=== PATIENT | male | born 1985 | race Two or more races ===

== ENCOUNTER → 2020-10-25 | Outpatient (CLI) | payer MEDICAID, SELFPAY ==
--- NOTE | 2020-10-25 14:13 | XR_ITS ---
Examination: IR staple removal Exam date and time: October 25, 2020 at 1413 hours INDICATIONS: Port-A-Cath insertion October 13, 2020, removal brandi today TECHNIQUE: Skin prepped over the Port-A-Cath reservoir insertion site and sterile drape applied hand hygiene Successful removal brandi at the bedside Estimated blood loss 0 cc Patient in stable condition a completion procedure IMPRESSION: Successful IR staple removal at Port-A-Cath reservoir insertion site
== END | disposition home or self-care (01) ==
PROVIDERS: Referring Provider Radiology Diagnostic Radiology; Visit Provider Radiology Diagnostic Radiology
DX: I10 Essential (primary) hypertension (principal)

== ENCOUNTER 2024-05-13 12:53 | Emergency (ER) | payer MEDICAID, SELFPAY ==
[2024-05-13 12:53] VITALS: BMI 21.7
[2024-05-13 13:15] VITALS: BP 111/71; PULSE 105; RESP 18; TEMP 37.1; O2SAT 96
--- NOTE | 2024-05-13 13:29 | EDNOTE_ITS ---
ED Ear RME/HPI General Chief complaint: Ear Stated complaint: ARIEL EAR PAIN [id number] Time Seen by Provider: 05/13/24 13:03 Arrival date/time: 05/13/24 12:53 39-year-old male alcoholic presents emergency department complains of bilateral ear pain for the last few weeks intermittently patient reports his ear is irritated when he reports putting tissue paper in his right ear Limitations: no limitations Related Data Home Medications ?Medication ?Instructions ?Recorded ?Confirmed diazepam 2 mg tablet (Valium) 2 mg PO BID 06/08/2012/28 metoprolol succinate 50 mg 50 mg PO BID 06/08/2010/15 tablet,extended release 24 hr Previous Rx's ?Medication ?Instructions ?Recorded cephalexin 500 mg capsule 500 mg PO Q6H #20 caps 06/09 tramadol 50 mg tablet 50 mg PO Q6H PRN pain #20 ta bs 06/09/20 ibuprofen 600 mg tablet 600 mg PO QID PRN pain #30 t abs 08/07/23 ibuprofen 800 mg tablet 800 mg PO TID PRN pain #30 t abs 10/17/23 benzocaine 20 %-menthol 0.1 %-zinc 1 ea .Route TID PRN toothache #5.1 10/20/23 chloride 0.15 % mucosal gel grams (Orajel 3X Mouth Sores) ibuprofen 800 mg tablet 800 mg PO TID PRN pain #30 t abs 10/23/23 naproxen 500 mg tablet 500 mg PO BID PRN pain #30 t abs 10/25/23 hydrocodone 5 mg-acetaminophen 325 1 tab PO BID PRN pa in #10 tabs 12/13/23 mg tablet ibuprofen 600 mg tablet 600 mg PO Q8H PRN pain #20 t abs 01/22/24 amoxicillin 875 mg-potassium 1 tab PO BID 7 days #14 t abs 05/13/24 clavulanate 125 mg tablet ibuprofen 600 mg tablet 600 mg PO Q6H #30 tabs 05/13 ofloxacin 0.3 % ear drops 10 drop otic (ear) QDAY 10 d ays 05/13/24 #10 mL Allergies Allergy/AdvReac Type Severity Reaction Status Date / Time No Known Allergies Allergy Verified 05/13/24 12:55 Review of Systems Review of Systems Systems Reviewed: All systems reviewed, normal except as documented Constitutional Constitutional: Reports system reviewed and no additional complaints, except as documented, Denies fever(s) and Denies headache(s) Eyes Eyes: Reports system reviewed and no additional complaints, except as documented and Denies blurry vision ENT Ears, Nose, Mouth, and Throat: Reports system reviewed and no additional complaints, except as documented, Denies headache(s), Denies nasal congestion, Denies nasal discharge and Reports other (Foreign body right ear) Cardiovascular Cardiovascular: Reports system reviewed and no additional complaints, except as documented, Denies chest pain and Denies dyspnea Respiratory Respiratory: Reports system reviewed and no additional complaints, except as documented, Denies chest congestion, Denies cough and Denies dyspnea Gastrointestinal Gastrointestinal: Reports system reviewed and no additional complaints, except as documented and Denies abdominal pain Integumentary/Breasts Skin/Breast: Reports system reviewed and no additional complaints, except as documented and Denies rash Neurologic Neurologic: Reports system reviewed and no additional complaints, except as documented, Reports as per HPI and Denies headache(s) Past Medical History Past Medical History NEUROLOGIC: Negative Neurological Disorders or Seizures CARDIAC: Positive Cardiac Disorders and Hypertension (NO MEDS); Negative Congestive Heart Failure RESPIRATORY: Negative Chronic Obstructive Pulmonary Disease (COPD) GASTROINTESTINAL: Positive Gastrointestinal Disorders, Ulcer and Gastroesophageal Reflux Disease GENITOURINARY: Negative Genitourinary Disorders or Renal Disease REPRODUCTIVE: Positive Testicular Cancer MUSCULOSKELETAL: Negative Musculoskeletal Disorders ENT: Negative Glaucoma ENDOCRINE: Negative Endocrine Disorders, Diabetes Mellitus Type 1 or Diabetes Mellitus Type 2 HEMATOLOGIC: Negative Blood Disorders PSYCHO/SOCIAL: Positive Depression and Anxiety OTHER HISTORY: Positive Testicular Cancer; Negative Autoimmune Disease, Blood Transfusions, Blood Transfusion Reaction or Anesthesia Reactions Family History FAMILY HISTORY: Positive Family Cardiac Disorders (PARENTAL) and Family Surgery (SELF TESTICULAR CA); Negative Family Cancer Social History SMOKING STATUS: Never smoker ED Exam General Limitations: Present no limitations General appearance: Present alert and in no apparent distress Head Head exam: Present atraumatic Eye Eye exam: Present normal appearance, PERRL and EOMI ENT ENT exam: Present mucous membranes moist and other (Foreign bodies bilateral ears) Neck Neck exam: Present normal inspection, full ROM and trachea midline Chest Chest inspection: Present normal inspection and symmetric chest wall rise Respiratory Respiratory exam: Present normal lung sounds bilaterally Cardiovascular Cardiovascular exam: Present regular rate, normal rhythm and normal heart sounds Abdominal Exam Abdominal exam: Present soft and normal bowel sounds Extremities Exam Extremities exam: Present normal inspection and full ROM Back Exam Back exam: Present normal inspection and full ROM Neurological Exam Neurological exam: Present alert, oriented X3 and CN II-XII intact Psychiatric Psychiatric exam: Present normal affect and normal mood Skin Skin exam: Present warm, dry, intact and normal color Course Quality Measures none Orders Category Date Time Status ED Ear Irrigation X1 Care 05/13/24 13:29 Active Ibuprofen Tab [Motrin Tab] Med 05/13/24 13:29 Discontinued 800 mg PO X1 ONE Vital Signs Vital signs: Vital Signs Temperature 98.8 F 05/13/24 13:15 Pulse Rate 105 H 05/13/24 13:15 Respiratory Rate 18 05/13/24 13:15 Blood Pressure 111/71 05/13/24 13:15 Pulse Oximetry (%) 96 05/13/24 13:15 Oxygen Delivery Method Room Air 05/13/24 13:15 O2 saturation 96% room air with normal limits Procedures -ED FB Removal Ear Location: ear canal (R) (Bilateral ears) Foreign Body Suspected: organic matter TM intact pre-procedure: unable to visualize Foreign Body Removed: yes Foreign Body Removal Technique: irrigation Tympanic Membrane Intact Post Procedure: Yes Patient Tolerated Procedure: well Complications: none Ear Patient data External records reviewed:: [facility] previous records Clinical information provided by:: patient Social determinants that could affect healthcare access:: substance use Patient has the following chronic illnesses:: Substance abuse How is presenting disease/condition affected by chronic disease/condition?: exacerbated by Evaluation data The following diagnostics were reviewed and interpreted by me:: other (specify) (N/A) Lab and/or radiology exams considered but not ordered:: Consider not ordered Interpretation Summary: N/A Medications / Prescriptions Medications or Prescriptions considered but not ordered:: Given Medication administrations:: Medication Administration History Discontinued Medications Ibuprofen (Ibuprofen Tab 400 Mg Tablet) 800 mg PO X1 ONE Stop: 05/13/24 13:30 Last Admin: 05/13/24 13:39 Dose: 800 mg Documented By: OA Given Consultations Consultation(s) initiated? (list below): No Diagnosis Ear Differential Diagnosis: foreign body in ear Most likely diagnosis given after review of the tests above:: Foreign body bilateral ear canal Admission Indicated Admission indicated?: not indicated Admission Request Was there a request for admission?: No Disposition Plan Disposition Plan: Discharge Discharge Attestation Discharge Attestation: The patient and all family members were given an opportunity to ask questions and understood the discharge instructions. Discharge instructions specifically effects, indications for sooner follow up or return to the emergency department, and the expected course of current diagnosis. Patient condition: Stable Medical Decision Making MDM Narrative MDM Narrative: 39-year-old male alcoholic presents emergency department complains of bilateral ear pain for the last few weeks intermittently patient reports his ear is irritated when he reports putting tissue paper in his right ear patient has toilet paper in his right ear which was removed with instrumentation as well as irrigation Left ear has debris which was also removed with irrigation Patient be discharged home a course of antibiotics TMs intact Patient discharged home in no distress to follow-up with primary care doctor in the next 24 to 48 hours and for any worsening symptoms to return to the ER immediately Differential Diagnosis Differential Diagnosis: Alcohol abuse, methamphetamine abuse, otitis media, otitis externa Medical Records Medical records reviewed: Yes I reviewed the patient's medical records. Discharge Plan Plan Patient Disposition: HOME (Self Care) Disposition Comment: Stable Prescriptions/Referrals Prescriptions/Med Rec: New ofloxacin 0.3 % drops 10 drop BOTH EARS QDAY 10 Days Qty: 10 0RF ibuprofen 600 mg tablet 600 mg PO Q6H Qty: 30 0RF amoxicillin-pot clavulanate 875-125 mg tablet 1 tab PO BID 7 Days Qty: 14 0RF No Action metoprolol succinate 50 mg tablet extended release 24 hr 50 mg PO BID Patient Comments: TAKE 1 TABLET BY MOUTH ONCE DAILY diazepam [Valium] 2 mg Tablet 2 mg PO BID tramadol 50 mg tablet 50 mg PO Q6H PRN (Reason: pain) Qty: 20 0RF cephalexin 500 mg capsule 500 mg PO Q6H Qty: 20 0RF Orajel 3X Mouth Sores 20-0.1-0.15 % gel 1 ea .Route TID PRN (Reason: toothache) Qty: 5.1 0RF Rx Instructions: PRN ibuprofen 800 mg tablet 800 mg PO TID PRN (Reason: pain) Qty: 30 0RF naproxen 500 mg tablet 500 mg PO BID PRN (Reason: pain) Qty: 30 0RF ibuprofen 600 mg tablet 600 mg PO QID PRN (Reason: pain) Qty: 30 0RF ibuprofen 800 mg tablet 800 mg PO TID PRN (Reason: pain) Qty: 30 0RF hydrocodone-acetaminophen 5-325 mg tablet 1 tab PO BID MDD 10mg PRN (Reason: pain) Qty: 10 0RF ibuprofen 600 mg tablet 600 mg PO Q8H PRN (Reason: pain) Qty: 20 0RF Problem List Clinical Impression: Foreign body in ear Patient/Caregiver Discharge Instructions Education Materials: Anatomy of the Ear Additional Instructions: Please follow up with your primary care doctor in the next 24-48hrs for any worsening symptoms return here immediately Print Language: Pashto Stand Alone Forms: Emma Award Info., Patient Portal Info Letter PA/TRACTOR SWEEPER OPERATOR Supervising Physician PA/TRACTOR SWEEPER OPERATOR Supervising Physician: Dr Giang
[2024-05-13] MEDS: IBUPROFEN TAB 400 MG TABLET 800 MG PO (13:39)
== END 2024-05-13 14:34 | disposition home or self-care (01) ==
LOC: SERX 13:56
PROVIDERS: Emergency Provider Emergency Medicine; PCP Family Medicine
DX: T16.1XXA Foreign body in right ear, initial encounter (principal); T16.2XXA Foreign body in left ear, initial encounter; W44.F9XA Other object of natural or organic material, entering into or through a natural orifice, initial encounter
CPT/HCPCS: 69200; 99283; A9270

== ENCOUNTER 2024-06-13 16:42 | Emergency (ER) | payer MEDICAID, SELFPAY ==
[2024-06-13 16:43] VITALS: PULSE 116; RESP 18; O2SAT 98; BMI 23.0
[2024-06-13 16:49] VITALS: BP 170/97; PULSE 110; RESP 16; TEMP 36.7; O2SAT 99
--- NOTE | 2024-06-13 16:51 | PD.EDAMS ---
Altered Mental Status RME/HPI General Chief Complaint: Altered Mental Status Stated Complaint: ALTERED Time Seen by Provider: 06/13/24 16:46 Arrival date/time: 06/13/24 16:42 RME / HPI RME / HPI narrative: DR. ALARCON MAIN ED EVALUATION: 39 year old male presents to the Emergency Department [facility] with complaint of altered mental status, possible alcohol withdrawal seizure. Patient states he gets alcohol withdrawals. He tried to quit drinking cold turkey. He is shaky. 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 Other PMHx included hypertension and hearing problems since childhood. Social Hx: marijuana abuse, alcohol abuse Related Data Home Medications ?Medication ?Instructions ?Recorded ?Confirmed diazepam 2 mg tablet (Valium) 2 mg PO BID 06/08/20 10/15/20 metoprolol succinate 50 mg 50 mg PO BID 06/08/20 10/15/20 tablet,extended release 24 hr Previous Rx's ?Medication ?Instructions ?Recorded cephalexin 500 mg capsule 500 mg PO Q6H #20 caps 06/09/20 tramadol 50 mg tablet 50 mg PO Q6H PRN pain #20 tabs 06/09/20 ibuprofen 600 mg tablet 600 mg PO QID PRN pain #30 tabs 08/07/23 ibuprofen 800 mg tablet 800 mg PO TID PRN pain #30 tabs 10/17/23 benzocaine 20 %-menthol 0.1 %-zinc 1 ea .Route TID PRN toothache #5.1 10/20/23 chloride 0.15 % mucosal gel grams (Orajel 3X Mouth Sores) ibuprofen 800 mg tablet 800 mg PO TID PRN pain #30 tabs 10/23/23 naproxen 500 mg tablet 500 mg PO BID PRN pain #30 tabs 10/25/23 hydrocodone 5 mg-acetaminophen 325 1 tab PO BID PRN pain #10 tabs 12/13/23 mg tablet ibuprofen 600 mg tablet 600 mg PO Q8H PRN pain #20 tabs 01/22/24 ibuprofen 600 mg tablet 600 mg PO Q6H #30 tabs 05/13/24 lorazepam 2 mg tablet (Ativan) 2 mg PO Q8H #9 tabs 06/13/24 ondansetron 4 mg disintegrating 4 mg PO TID PRN nausea and 06/13/24 tablet vomiting 30 days #10 tabs Allergies Allergy/AdvReac Type Severity Reaction Status Date / Time No Known Allergies Allergy Verified 05/13/24 12:55 Review of Systems Review of Systems Systems Reviewed: All systems reviewed, normal except as documented Narrative Review of Systems: GEN: No fever, no chills, no weight loss EYES: No discharge, no visual changes, no pain HEENT: No ear pain, no congestion, no sore throat PULM: No shortness of breath, no cough, no congestion CV: No chest pain, no dyspnea on exertion, no palpitations GI: No nausea, no vomiting, no diarrhea, no pain, no constipation : No frequency, no urgency and no dysuria MUSC/SKEL: No joint pain, no back pain SKIN: No rash PSYCH: No hallucinations, no depression HEME/LYMPH: No easy bleeding or bruising tendencies NEURO: No weakness, no headache, + seizure (see HPI) Past Medical History Past Medical History CARDIAC: Positive Cardiac Disorders and Hypertension (NO MEDS) GASTROINTESTINAL: Positive Gastrointestinal Disorders, Ulcer and Gastroesophageal Reflux Disease REPRODUCTIVE: Positive Testicular Cancer PSYCHO/SOCIAL: Positive Depression and Anxiety OTHER HISTORY: Positive Testicular Cancer Family History FAMILY HISTORY: Positive Family Cardiac Disorders (PARENTAL) and Family Surgery (SELF TESTICULAR CA) Social History SMOKING STATUS: Never smoker SUBSTANCE USE: does not use ALCOHOL: Never ED Exam Narrative Physical exam: GENERAL APPEARANCE: alert and oriented x 4, well-developed, well-nourished, no acute distress, tremulous VITALS: All vitals were reviewed and the pulse ox is 98% on room air, which is normal according to my interpretation. HEENT: Normocephalic, atraumatic; pupils equal, round, reactive to light; EOMI; mucous membranes pink, moist; oropharynx clear NECK: Supple LUNGS: CTABL; no wheezes, no rales, no rhonchi HEART: tachycardic; normal S1, S2; no murmurs ABDOMEN: non distended; normal BS; soft, no tenderness, no guarding, no rebound; no masses, no organomegaly, no hernia BACK: no CVA tenderness EXTREMITIES: atraumatic; no edema NEUROLOGIC: tremulous, awake; alert and oriented x4; cranial nerves II-XII grossly intact; no focal sensory or motor deficits PSYCHIATRIC: appropriate mood and affect SKIN: warm, dry, normal color; no rashes Course Quality Measures none Orders Category Date Time Status Aerial Photograph Interpreter NOW Care 06/13/24 17:04 Active EKG (ED ONLY) *Do not use* NOW Care 06/13/24 17:04 Completed EKG (ED Only) Stat Exams 06/13/24 17:04 Draft Alcohol, Blood Medical Stat Lab 06/13/24 17:30 Completed B-Type Natriuretic Peptide Stat Lab 06/13/24 17:30 Completed CBC Stat Lab 06/13/24 17:30 Completed Comprehensive Metabolic Panel Stat Lab 06/13/24 17:30 Completed Drug Screen,Urine Stat Lab 06/13/24 17:31 Completed Magnesium Stat Lab 06/13/24 17:30 Completed Troponin I Stat Lab 06/13/24 17:30 Completed KCL 10% Liq UDC 15 ML Med 06/13/24 18:40 Discontinued 40 meq PO X1 ONE LORazepam [Ativan Inj] Med 06/13/24 17:44 Discontinued 1 mg IVP X1 ONE LORazepam [Ativan Inj] Med 06/13/24 18:25 Discontinued 2 mg IVP X1 ONE Ondansetron Inj [Zofran Inj] Med 06/13/24 18:25 Discontinued 4 mg IV X1 ONE Vital Signs Vital signs: Vital Signs Temperature 98.0 F 06/13/24 16:49 Pulse Rate 110 H 06/13/24 16:49 Respiratory Rate 16 06/13/24 16:49 Blood Pressure 170/97 H 06/13/24 16:49 Pulse Oximetry (%) 99 06/13/24 16:49 Oxygen Delivery Method Room Air 06/13/24 16:49 Altered Mental Status MDM Narrative MDM Narrative:: I, Eliana Cordon, marty scribing for and in the presence of Dr. Alarcon. 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 Other PMHx included hypertension and hearing problems since childhood. How is presenting disease/condition affected by chronic disease/condition?: exacerbated by Evaluation data The following diagnostics were reviewed and interpreted by me:: lab results and EKG tracing(s) Lab and/or radiology exams considered but not ordered:: none Interpretation Summary: EKG#1: EKG at 1726 hours. Interpreted by me: sinus rhythm, rate 98, no acute ischemic changes Medications / Prescriptions Medications or Prescriptions considered but not ordered:: none Medication administrations:: Medication Administration History Discontinued Medications Lorazepam (Lorazepam 2 Mg/Ml Vial) 1 mg IVP X1 ONE Stop: 06/13/24 17:45 Last Admin: 06/13/24 17:56 Dose: 1 mg Documented By: CHANO Lorazepam (Lorazepam 2 Mg/Ml Vial) 2 mg IVP X1 ONE Stop: 06/13/24 18:26 Last Admin: 06/13/24 18:42 Dose: 2 mg Documented By: CHANO Ondansetron HCl (Ondansetron Inj 2 Mg/Ml Inj 2 Ml) 4 mg IV X1 ONE; Protocol Stop: 06/13/24 18:26 Last Admin: 06/13/24 18:41 Dose: 4 mg Documented By: CHANO Potassium Chloride (Potassium Chloride 10% 20 Meq/15 Ml Udc) 40 meq PO X1 ONE Stop: 06/13/24 18:41 Last Admin: 06/13/24 18:47 Dose: 40 meq Documented By: CHANO see above if any Consultations Consultation(s) initiated? (list below): No Diagnosis Differential diagnosis altered mental status: alcoholic intoxication, altered mental status and other (alcohol withdrawals, alcohol withdrawal seizure) Most likely diagnosis given after review of the tests above:: pending diagnostic tests Admission Indicated Admission indicated?: not indicated Explain why admission is indicated or not indicated:: No final disposition plan at this time, still pending diagnostic tests. Patient signout to the base remover provider. Admission Request Was there a request for admission?: No Disposition Plan Disposition Plan: other (specify) (Patient signout to the base remover provider. ) Discharge Plan Plan Patient Disposition: HOME (Self Care) Prescriptions/Referrals Prescriptions/Med Rec: New lorazepam [Ativan] 2 mg tablet 2 mg PO Q8H Qty: 9 0RF ondansetron 4 mg tablet,disintegrating 4 mg PO TID PRN (Reason: nausea and vomiting) 30 Days Qty: 10 0RF No Action metoprolol succinate 50 mg tablet extended release 24 hr 50 mg PO BID Patient Comments: TAKE 1 TABLET BY MOUTH ONCE DAILY diazepam [Valium] 2 mg Tablet 2 mg PO BID tramadol 50 mg tablet 50 mg PO Q6H PRN (Reason: pain) Qty: 20 0RF cephalexin 500 mg capsule 500 mg PO Q6H Qty: 20 0RF Orajel 3X Mouth Sores 20-0.1-0.15 % gel 1 ea .Route TID PRN (Reason: toothache) Qty: 5.1 0RF Rx Instructions: PRN ibuprofen 800 mg tablet 800 mg PO TID PRN (Reason: pain) Qty: 30 0RF naproxen 500 mg tablet 500 mg PO BID PRN (Reason: pain) Qty: 30 0RF ibuprofen 600 mg tablet 600 mg PO QID PRN (Reason: pain) Qty: 30 0RF ibuprofen 800 mg tablet 800 mg PO TID PRN (Reason: pain) Qty: 30 0RF hydrocodone-acetaminophen 5-325 mg tablet 1 tab PO BID MDD 10mg PRN (Reason: pain) Qty: 10 0RF ibuprofen 600 mg tablet 600 mg PO Q8H PRN (Reason: pain) Qty: 20 0RF ibuprofen 600 mg tablet 600 mg PO Q6H Qty: 30 0RF Problem List Clinical Impression: Alcohol withdrawal, Alcohol abuse Patient/Caregiver Discharge Instructions Discharge Activity: activity as tolerated Education Materials: ED Alcohol Withdrawal, ED Alcohol Abuse Additional Instructions: Discharge Instructions from Dr. Greenberg printed for you: 1. After evaluation, you are withdrawing from alcohol. This can be fatal. We recommended hospitalization. But you declined. We couldn't change her mind. 2. Take Ativan 2 mg every 8 hours until seen by a doctor on 06/16/2024 to prevent alcohol withdrawal. 3. Zofran for nausea/vomiting. For good hydration, increase oral fluid and maintain clear urine. If dark or yellow, increase oral fluid. Eat regular nutritious meals. 4. Every day, take multivitamin and folic acid 1 mg and thiamine 50 mg daily. 5. See a private doctor on 06/16/2024 for recheck and further care. Ask to review all test results and official radiology reports, to make sure you receive all necessary follow-ups and monitoring. Ask for help to quit alcohol and to prevent alcohol withdrawal. 6. Seek immediate medical care with worsening, seizure, hallucinating, or with any concerns. Print Language: Upper Sorbian Stand Alone Forms: Emma Award Info., Patient Portal Info Letter
--- NOTE | 2024-06-13 17:04 | EKG_ITS ---
[facility] Test Date: 2024-06-13 Pat Name: ALPESH RAMOS Department: Room: - Gender: Male Field Staff: : 1985 Requested By: Ely Dumont Order Number: [id number] Reading MD: Ely Dumont Measurements Intervals [place] Rate: 98 P: 82 [place]: 186 QRS: 79 QRSD: 98 T: 70 QT: 353 QTc: 452 Interpretive Statements SINUS RHYTHM Compared to ECG 01/26/2021 14:13:32 Sinus tachycardia no longer present /store/[id number]
[2024-06-13 17:29] VITALS: BP 144/78; PULSE 101; RESP 16; O2SAT 98
[2024-06-13 17:37] LABS: Basophils % (Auto) 1 % (0-2.5); Eosinophils % (Auto) 0 % (0-10); Hematocrit 36.4 % (41.0-53.0); Hemoglobin 12.7 g/dL (13.5-16.0); Immature Granulocytes % (Auto) 0 % (0-0); Immature Granulocytes Auto 0.01 Thou/mm3 (0.00-0.00); Lymphocytes # (Auto) 0.6 Thou/mm3 (1.0-4.8); Lymphocytes % (Auto) 13 % (10-50); Mean Corpuscular HGB Conc 34.9 g/dl (31.0-37.0); Mean Corpuscular Hemoglobin 32.6 pg (25.0-35.0); Mean Corpuscular Volume 93 fL (80-100); Monocytes # (Auto) 0.6 Thou/mm3 (0.0-0.8); Monocytes % (Auto) 13 % (0-12); Neutrophils # (Auto) 3.6 Thou/mm3 (1.8-7.7); Neutrophils % (Auto) 74 % (37-80); Nucleated Red Blood Cell % 0 /100 WBC (0); Platelet Count 180 Thou/mm3 (140-440); RDW Standard Deviation 43.8 fL (35.1-43.9); White Blood Count 4.9 Thou/mm3 (3.8-10.6)
[2024-06-13 17:47] LABS: Amphetamine/Methamp Scrn,U Negative (Negative); Barbiturate Screen,Urine Negative (Negative); Benzodiazepines Screen,Urine Negative (Negative); Benzoylecgonine Screen, Ur Negative (Negative); Fentanyl Screen,Urine Negative (Negative); Opiate Screen,Urine Negative (Negative); THC Screen,Urine Positive (Negative)
[2024-06-13 17:53] LABS: Alanine Aminotransferase 21 U/L (10-49); Albumin, Serum 4.7 gm/dL (3.5-5.0); Albumin/Globulin Ratio 1.5 (1.2-2.2); Alcohol, Blood Medical < 10.0 mg/dL (0-10.0); Alkaline Phosphatase 90 U/L (46-116); Anion Gap 13 (7-16); Aspartate Amino Transferase 63 U/L (0-34); BUN/Creatinine Ratio 6 Ratio (12-20); Bilirubin,Total 0.9 mg/dL (0.3-1.2); Blood Urea Nitrogen < 5 mg/dL (9-23); Calcium 10.3 mg/dL (8.3-10.6); Calcium (Corrected) 10.3 mg/dL (8.5-10.1); Carbon Dioxide 22.8 mMol/L (20.0-31.0); Chloride 101 mMol/L (98-107); Creatinine (Component) 0.8 mg/dL (0.6-1.3); Estimated Creatinine Clearance 135.2 mL/min (>60); Globulin 3.1 gm/dL (2.3-3.5); Glucose 171 mg/dL (74-106); Magnesium 1.7 mg/dL (1.6-2.6); Osmolality,Calculated 275 (275-295); Potassium 3.2 mMol/L (3.4-5.1); Sodium 137 mMol/L (136-145); Total Protein 7.8 gm/dL (5.7-8.2); Troponin I < 0.002 ng/mL (0.0-0.045); eGFR > 60 See Note
[2024-06-13] MEDS: LORazepam 2 MG/ML VIAL 1 MG IVP (17:56)
[2024-06-13 18:02] VITALS: BP 157/98; PULSE 85; RESP 21; TEMP 36.6; O2SAT 98
--- NOTE | 2024-06-13 18:12 | PD.EDADDENDU ---
Emergency Room Addendum <Mariely Hernandez - Last Filed: 06/13/24 18:47> Addendum Narrative: I took over the care from Dr. Alarcon at 6 PM on 06/13/2024, see her notes for complete H&P and ED course. I reviewed all diagnostic test results. At this point, diagnoses include alcohol abuse and alcohol withdrawal. Discharge Instructions from Dr. Greenberg printed for you: 1. After evaluation, you are withdrawing from alcohol. This can be fatal. We recommended hospitalization. But you declined. We couldn't change her mind. 2. Take Ativan 2 mg every 8 hours until seen by a doctor on 06/16/2024 to prevent alcohol withdrawal. 3. Zofran for nausea/vomiting. For good hydration, increase oral fluid and maintain clear urine. If dark or yellow, increase oral fluid. Eat regular nutritious meals. 4. Every day, take multivitamin and folic acid 1 mg and thiamine 50 mg daily. 5. See a private doctor on 06/16/2024 for recheck and further care. Ask to review all test results and official radiology reports, to make sure you receive all necessary follow-ups and monitoring. Ask for help to quit alcohol and to prevent alcohol withdrawal. 6. Seek immediate medical care with worsening, seizure, hallucinating, or with any concerns. <Mega Greenberg MD - Last Filed: 06/13/24 18:49> Addendum Narrative: I took over the care from Dr. Alarcon at 6 PM on 06/13/2024, see her notes for complete H&P and ED course. I reviewed all diagnostic test results. At this point, diagnoses include alcohol abuse and alcohol withdrawal. Treatment here included oral KCl, IV Ativan, and Zofran. Significant improvement noted. Recommended hospitalization for alcohol withdrawal and to prevent seizure and even mortality. Patient declined. He signed out AMA. Despite discussing risks, even fatality, we couldn't change his mind. Based on my best medical judgment, made decision no further evaluation or treatment indicated at this time.? Patient understands and agrees to the discharge instructions customized and printed, see below. Discharge Instructions from Dr. Greenberg printed for you: 1. After evaluation, you are withdrawing from alcohol. This can be fatal. We recommended hospitalization. But you declined. We couldn't change her mind. 2. Take Ativan 2 mg every 8 hours until seen by a doctor on 06/16/2024 to prevent alcohol withdrawal. 3. Zofran for nausea/vomiting. For good hydration, increase oral fluid and maintain clear urine. If dark or yellow, increase oral fluid. Eat regular nutritious meals. 4. Every day, take multivitamin and folic acid 1 mg and thiamine 50 mg daily. 5. See a private doctor on 06/16/2024 for recheck and further care. Ask to review all test results and official radiology reports, to make sure you receive all necessary follow-ups and monitoring. Ask for help to quit alcohol and to prevent alcohol withdrawal. 6. Seek immediate medical care with worsening, seizure, hallucinating, or with any concerns.
[2024-06-13 18:13] LABS: B-Type Natriuretic Peptide < 20 pg/mL (0-100)
[2024-06-13] MEDS: ONDANSETRON INJ 2 MG/ML INJ 2 ML 4 MG IV (18:41)
[2024-06-13] MEDS: LORazepam 2 MG/ML VIAL IVP (18:42)
[2024-06-13] MEDS: POTASSIUM CHLORIDE 10% 20 MEQ/15 ML UDC 40 MEQ PO (18:47)
== END 2024-06-13 19:35 | disposition home or self-care (01) ==
PROVIDERS: Emergency Medicine; Emergency Provider Emergency Medicine
DX: F10.139 Alcohol abuse with withdrawal, unspecified (principal); Y90.0 Blood alcohol level of less than 20 mg/100 ml; I10 Essential (primary) hypertension
CPT/HCPCS: 36415; 80053; 80307; 80320; 83735; 83880; 84484; 85025; 93005; 99284; J2060; J2405; A9270; G0480

== ENCOUNTER 2024-07-15 12:29 | Emergency (ER) | payer MEDICAID, SELFPAY ==
[2024-07-15 12:32] VITALS: BP 130/75; PULSE 108; RESP 18; TEMP 36.7; O2SAT 94; BMI 26.1
--- NOTE | 2024-07-15 12:50 | EDNOTE_ITS ---
<Statement entered by Ely Alarcon MD - 07/15/24 15:03> As co-signing physician, I was present and available for consult prn. I concur with the plan and care as documented by the midlevel provider. ED General RME/HPI General Chief complaint: Fall Stated complaint: FALL Time Seen by Provider: 07/15/24 12:49 Arrival date/time: 07/15/24 12:29 CC: Headache HPI patient presents the ER via EMS who reports stable vital signs at the patient fell a bus slight incline, admits to striking his head, denies LOC however the patient is highly intoxicated, drinks bottle and a half of vodka every day. EMS has not seen this patient before however PD state they are quite familiar with this person. Patient informs that he was given an option of going to correction or coming to the emergency room he is awake alert oriented said he has pain motioning to his right side of his head. Awake alert oriented x [address] with slurred speech. No other complaints of pain. Related Data Home Medications ?Medication ?Instructions ?Recorded ?Confirmed diazepam 2 mg tablet (Valium) 2 mg PO BID 06/08/2012/28 metoprolol succinate 50 mg 50 mg PO BID 06/08/2010/15 tablet,extended release 24 hr Previous Rx's ?Medication ?Instructions ?Recorded cephalexin 500 mg capsule 500 mg PO Q6H #20 caps 06/09 tramadol 50 mg tablet 50 mg PO Q6H PRN pain #20 ta bs 06/09/20 ibuprofen 600 mg tablet 600 mg PO QID PRN pain #30 t abs 08/07/23 ibuprofen 800 mg tablet 800 mg PO TID PRN pain #30 t abs 10/17/23 benzocaine 20 %-menthol 0.1 %-zinc 1 ea .Route TID PRN toothache #5.1 10/20/23 chloride 0.15 % mucosal gel grams (Orajel 3X Mouth Sores) ibuprofen 800 mg tablet 800 mg PO TID PRN pain #30 t abs 10/23/23 naproxen 500 mg tablet 500 mg PO BID PRN pain #30 t abs 10/25/23 hydrocodone 5 mg-acetaminophen 325 1 tab PO BID PRN pa in #10 tabs 12/13/23 mg tablet ibuprofen 600 mg tablet 600 mg PO Q8H PRN pain #20 t abs 01/22/24 ibuprofen 600 mg tablet 600 mg PO Q6H #30 tabs 05/13 lorazepam 2 mg tablet (Ativan) 2 mg PO Q8H #9 tabs 10/31 Allergies Allergy/AdvReac Type Severity Reaction Status Date / Time No Known Allergies Allergy Verified 05/13/24 12:55 Review of Systems Review of Systems Narrative Review of Systems: GEN: No fever, no chills, no weight loss EYES: No discharge, no visual changes, no pain HEENT: No ear pain, no congestion, no sore throat PULM: No shortness of breath, no cough, no congestion CV: No chest pain, no dyspnea on exertion, no palpitations GI: No nausea, no vomiting, no diarrhea, no pain, no constipation : No frequency, no urgency, no dysuria MUSC/SKEL: No joint pain, no back pain SKIN: No rash PSYCH: No hallucinations, no depression HEME/LYMPH: No easy bleeding or bruising tendencies NEURO: No weakness, + headache Past Medical History Past Medical History NEUROLOGIC: Negative Neurological Disorders or Seizures CARDIAC: Positive Cardiac Disorders and Hypertension (NO MEDS); Negative Congestive Heart Failure RESPIRATORY: Negative Chronic Obstructive Pulmonary Disease (COPD) GASTROINTESTINAL: Positive Gastrointestinal Disorders, Ulcer and Gastroesophageal Reflux Disease GENITOURINARY: Negative Genitourinary Disorders or Renal Disease REPRODUCTIVE: Positive Testicular Cancer MUSCULOSKELETAL: Negative Musculoskeletal Disorders ENT: Negative Glaucoma ENDOCRINE: Negative Endocrine Disorders, Diabetes Mellitus Type 1 or Diabetes Mellitus Type 2 HEMATOLOGIC: Negative Blood Disorders PSYCHO/SOCIAL: Positive Depression and Anxiety OTHER HISTORY: Positive Testicular Cancer; Negative Autoimmune Disease, Blood Transfusions, Blood Transfusion Reaction or Anesthesia Reactions Family History FAMILY HISTORY: Positive Family Cardiac Disorders (PARENTAL) and Family Surgery (SELF TESTICULAR CA); Negative Family Cancer Social History SMOKING STATUS: Never smoker SUBSTANCE USE: does not use ED Exam Narrative Physical exam: [General: Appears not in any acute distress Head normocephalic no step-off hematoma induration ulceration depression. HEENT: Eyes pupils are PERRLA EOMs are intact no entrapment mouth pink dry membranes uvula is midline swallow symmetrical phonation is normal all the subsystems of ATTR within acceptable limits Neck is supple nontender no spinous process tenderness with palpation full range of motion flexion extension or rotation. Chest equal chest rise nontender to palpation Respiratory: Clear to auscultation no wheezes crackles or rubs CV: Rate rhythm is regular no murmurs rubs or clicks Abdomen is soft nontender no masses positive bowel sounds all 4 quadrants Back: No CVA tenderness no spinous process tenderness from cervical spine thoracic and lumbar spine Skin: Intact no petechiae rash induration ulceration or crepitus Extremities: Moving all extremity against resistance cap refill less than 2 seconds neurosensory intact Neuro: Awake alert oriented x2, person and place, Glascow coma 15 no focal deficits] Course Quality Measures none Orders Category Date Time Status CT head/brain wo con Stat Exams 07/15/24 12:49 Ordered Acetaminophen Tab [Tylenol Tab] Med 07/15/24 14:26 Discontinued 650 mg PO X1 ONE Vital Signs Vital signs: Vital Signs Temperature 98.1 F 07/15/24 12:32 Pulse Rate 108 H 07/15/24 12:32 Respiratory Rate 18 07/15/24 12:32 Blood Pressure 130/75 07/15/24 12:32 Pulse Oximetry (%) 94 L 07/15/24 12:32 Oxygen Delivery Method Room Air 07/15/24 12:32 MDM Patient data External records reviewed:: [facility] previous records and EMS form Clinical information provided by:: patient and EMS Social determinants that could affect healthcare access:: alcohol use Patient has the following chronic illnesses:: None How is presenting disease/condition affected by chronic disease/condition?: uneffected by Evaluation data The following diagnostics were reviewed and interpreted by me:: radiology exam(s) Lab and/or radiology exams considered but not ordered:: None Interpretation Summary: At 1430 was informed by nurses the patient had eloped. The patient is becoming a semibelligerent demanding pain medications was awake alert oriented with no focal deficits at that time. Patient was awaiting CT of the head. Patient ambulated without complications off the bed and out the door none Medications Medications considered but not ordered:: None Medication administrations:: Medication Administration History Discontinued Medications Acetaminophen (Acetaminophen 325 Mg Tablet) 650 mg PO X1 ONE Stop: 07/15/24 14:27 Last Admin: 07/15/24 14:34 Dose: 650 mg Documented By: DIONNE None Consultations Consultation(s) initiated? (list below): No Diagnosis Differential Diagnosis ED Complaint MDM: Closed head injury neck fracture alcohol intoxication Most likely diagnosis given after review of the tests above:: Elopement Admission Indicated Admission indicated?: not indicated Explain why admission is indicated or not indicated:: Eloped Admission Request Was there a request for admission?: No Disposition Plan Disposition Plan: other (specify) (Eloped) Medical Decision Making Differential Diagnosis Differential Diagnosis: Closed head injury neck fracture alcohol intoxication Discharge Plan Plan Patient Disposition: Elopement Patient condition on transfer: Stable Prescriptions/Referrals Prescriptions/Med Rec: No Action metoprolol succinate 50 mg tablet extended release 24 hr 50 mg PO BID Patient Comments: TAKE 1 TABLET BY MOUTH ONCE DAILY diazepam [Valium] 2 mg Tablet 2 mg PO BID tramadol 50 mg tablet 50 mg PO Q6H PRN (Reason: pain) Qty: 20 0RF cephalexin 500 mg capsule 500 mg PO Q6H Qty: 20 0RF Orajel 3X Mouth Sores 20-0.1-0.15 % gel 1 ea .Route TID PRN (Reason: toothache) Qty: 5.1 0RF Rx Instructions: PRN ibuprofen 800 mg tablet 800 mg PO TID PRN (Reason: pain) Qty: 30 0RF naproxen 500 mg tablet 500 mg PO BID PRN (Reason: pain) Qty: 30 0RF ibuprofen 600 mg tablet 600 mg PO QID PRN (Reason: pain) Qty: 30 0RF ibuprofen 800 mg tablet 800 mg PO TID PRN (Reason: pain) Qty: 30 0RF hydrocodone-acetaminophen 5-325 mg tablet 1 tab PO BID MDD 10mg PRN (Reason: pain) Qty: 10 0RF ibuprofen 600 mg tablet 600 mg PO Q8H PRN (Reason: pain) Qty: 20 0RF ibuprofen 600 mg tablet 600 mg PO Q6H Qty: 30 0RF lorazepam [Ativan] 2 mg tablet 2 mg PO Q8H Qty: 9 0RF Referrals: No Primary/Family,Physician [Primary Care Provider] - In 1 week Problem List Clinical Impression: Fall Patient/Caregiver Discharge Instructions Print Language: Turkish PA/[employer] Supervising Physician PA/[employer] Supervising Physician: Francine Donaldson ENP
[2024-07-15 12:56] VITALS: PULSE 113
--- NOTE | 2024-07-15 13:30 | PC.NURSE ---
PATIENT GIVEN SANDWICH, CHIPS, AND WATER REQUESTED. AWAITING FOR CT TO BE DONE AT THIS TIME. GCS OF 15, NO DISTRESS NOTED AT THIS TIME
[2024-07-15] MEDS: ACETAMINOPHEN 325 MG TABLET 650 MG PO (14:34)
--- NOTE | 2024-07-15 14:52 | PC.NURSE ---
PT CUSSING ON THE PHONE. SEEN GETTING UP AND WALKING OUT OF ED. I ATTEMPTED TO SPEAK WITH PT BUT HE CONTINUED TO WALK OUT OF ED WITH HIS EARPHONES PURPOSELY IGNORING ME. PROVIDER AWARE
== END 2024-07-15 14:58 | disposition left against medical advice (07) ==
PROVIDERS: Emergency Provider Emergency Medicine
DX: R51.9 Headache, unspecified (principal); W17.89XA Other fall from one level to another, initial encounter; Y92.811 Bus as the place of occurrence of the external cause
CPT/HCPCS: 99281; A9270

== ENCOUNTER 2024-08-12 08:35 | Emergency (ER) | payer MEDICAID, SELFPAY ==
[2024-08-12] VITALS (7 sets, daily range): BP systolic 135–159; BP diastolic 80–104; PULSE 76–114; RESP 18; TEMP 36.7–37; O2SAT 94–98; BMI 30.5
--- NOTE | 2024-08-12 10:52 | XR_ITS ---
Examination: CT brain head without contrast. 2-D sagittal coronal reconstructions Date and time of exam:August 12, 2024 1117 hours INDICATIONS: Patient fell today with injury to the head followed by head pain altered mental status CTDI: vol (mGy):50 DLP: (mGycm):1032 Technique: Multiple CT axial sections of the brain have been obtained, 5 mm slice thickness. Contrast has not been administered. 2-D sagittal, coronal reconstructions have been obtained Low dose protocols were performed. One or more of the following dose reduction techniques were used; automated exposure control, adjustment of the mA and/or KV according to patient size, use of iterative reconstruction technique. Findings: No significant ventricular enlargement. Intra-axial or extra-axial hemorrhage density is not seen. No mass effect or midline shift Basal cisterns are not remarkable. Fourth ventricle is midline. Cranial vault intact. Impression: Negative for acute hemorrhage, mass effect or midline shift
--- NOTE | 2024-08-12 10:55 | XR_ITS ---
Examination: CT cervical spine without contrast 2-D sagittal reconstructions 2-D coronal reconstructions 3-D reconstructions. Exam date and time:August 12, 2024 1117 hours INDICATIONS: Patient fell today with injury to the neck, neck pain CTDI:vol (mGy) 9 DLP: (mGycm) 222 Technique: Multiple 2 mm axial sections of the cervical spine have been obtained. The coronal and sagittal reconstructions have been obtained. 3-D reconstructions have been obtained. Low dose protocols were performed. One or more of the following dose reduction techniques were used; automated exposure control, adjustment of the mA and/or KV according to patient size, use of iterative reconstruction technique. Findings: Axial sections demonstrate intact base of the skull. C1 exhibit satisfactory relationship to the odontoid. No acute cervical vertebral body fracture seen. Alignment posterior spinous processes satisfactory. Impression: No acute cervical fracture.
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
[2024-08-12 11:13] LABS: Lactate (Lactic Acid) 3.3 mMol/L (0.4-2.0)
[2024-08-12 11:18] LABS: Basophils # (Auto) 0.1 Thou/mm3 (0.0-0.2); Basophils % (Auto) 2 % (0-2.5); Eosinophils % (Auto) 0 % (0-10); Hematocrit 35.3 % (41.0-53.0); Immature Granulocytes % (Auto) 0 % (0-0); Immature Granulocytes Auto 0.01 Thou/mm3 (0.00-0.00); Lymphocytes # (Auto) 1.5 Thou/mm3 (1.0-4.8); Lymphocytes % (Auto) 30 % (10-50); Mean Corpuscular HGB Conc 36.8 g/dl (31.0-37.0); Mean Corpuscular Hemoglobin 32.1 pg (25.0-35.0); Mean Corpuscular Volume 87 fL (80-100); Monocytes # (Auto) 0.8 Thou/mm3 (0.0-0.8); Monocytes % (Auto) 16 % (0-12); Neutrophils # (Auto) 2.5 Thou/mm3 (1.8-7.7); Neutrophils % (Auto) 51 % (37-80); Nucleated Red Blood Cell % 0 /100 WBC (0); Platelet Count 93 Thou/mm3 (140-440); RDW Standard Deviation 43.7 fL (35.1-43.9); Red Blood Count 4.05 Miln/mm3 (4.50-5.90); White Blood Count 4.9 Thou/mm3 (3.8-10.6)
[2024-08-12 11:42] LABS: Alanine Aminotransferase 74 U/L (10-49); Albumin, Serum 4.5 gm/dL (3.5-5.0); Albumin/Globulin Ratio 1.6 (1.2-2.2); Alkaline Phosphatase 142 U/L (46-116); Anion Gap 11 (7-16); Aspartate Amino Transferase 188 U/L (0-34); BUN/Creatinine Ratio 18 Ratio (12-20); Bilirubin,Total 0.7 mg/dL (0.3-1.2); Blood Urea Nitrogen 11 mg/dL (9-23); Calcium 8.9 mg/dL (8.3-10.6); Calcium (Corrected) 8.9 mg/dL (8.5-10.1); Carbon Dioxide 26.6 mMol/L (20.0-31.0); Chloride 99 mMol/L (98-107); Creatinine (Component) 0.6 mg/dL (0.6-1.3); Estimated Creatinine Clearance 181.2 mL/min (>60); Globulin 2.8 gm/dL (2.3-3.5); Glucose 113 mg/dL (74-106); Lipase 133 U/L (12-53); Osmolality,Calculated 274 (275-295); Potassium 3.3 mMol/L (3.4-5.1); Sodium 137 mMol/L (136-145); Total Protein 7.3 gm/dL (5.7-8.2); Troponin I < 0.020 ng/mL (0.0-0.045); eGFR > 60 See Note
[2024-08-12 11:43] LABS: Prothrombin Time 11.4 Seconds (9.0-12.2)
[2024-08-12] MEDS: SODIUM CHLORIDE 0.9% 500 ML 500 ML 999 ML IV (12:28)
[2024-08-12] MEDS: THIAMINE 100 MG TABLET PO (12:28)
[2024-08-12] MEDS: LORazepam 2 MG/ML VIAL IV (12:31)
[2024-08-12 14:12] LABS: Reflex Lactate? Y
[2024-08-12 14:57] LABS: Lactic Acid, 3 HR 1.7 mMol/L (0.4-2.0)
[2024-08-12 15:48] LABS: Collection Type, Urine Pedi-Bag; Squamous Epithelial Cell,Urine 0 /hpf (0-5)
[2024-08-12 16:03] LABS: Bilirubin,Urine Negative (Negative); Blood,Urine 1+ (Negative); Clarity,Urine Clear (Clear/Hazy); Color,Urine Yellow (Lt Yel-Yel); Glucose, Urine Negative (Negative); Hyaline Casts,Urine < 1 /hpf (0-1); Ketones,Urine Negative (Negative); Leukocyte Esterase,Urine Negative (Negative); Nitrite,Urine Negative (Negative); PH,Urine 6.5 (5.0-7.0); Protein,Urine 3+ (Neg - Trace); RBC,Urine 3 /hpf (0-3); Specific Gravity,Urine 1.023 (1.001-1.035); WBC,Urine 1 /hpf (0-5)
[2024-08-12 16:11] LABS: Amphetamine/Methamp Scrn,U Negative (Negative); Barbiturate Screen,Urine Negative (Negative); Benzodiazepines Screen,Urine Positive (Negative); Benzoylecgonine Screen, Ur Negative (Negative); Fentanyl Screen,Urine Negative (Negative); Opiate Screen,Urine Negative (Negative); THC Screen,Urine Positive (Negative)
== END 2024-08-12 18:22 | disposition home or self-care (01) ==
PROVIDERS: Emergency Provider Emergency Medicine
DX: F10.131 Alcohol abuse with withdrawal delirium (principal); F10.129 Alcohol abuse with intoxication, unspecified
CPT/HCPCS: 36415; 70450; 72125; 80053; 80307; 80320; 81001; 83605; 83690; 84484; 85025; 85610; 99284; 99285; J2060; J7040; A9270; G0480

== ENCOUNTER 2024-08-25 19:04 | Emergency (ER) | payer MEDICAID, SELFPAY ==
[2024-08-25 19:07] VITALS: PULSE 102; RESP 18; O2SAT 98
[2024-08-25 19:59] VITALS: BP 115/85; PULSE 103; RESP 18; TEMP 37; O2SAT 97
--- NOTE | 2024-08-25 20:09 | XR_ITS ---
Examination: CT brain head without contrast. 2-D sagittal coronal reconstructions Date and time of exam:August 25, 2024 and 41 hours Comparison August 12, 2024 CTDI: vol (mGy):51 DLP: (mGycm):1075 Technique: Multiple CT axial sections of the brain have been obtained, 5 mm slice thickness. Contrast has not been administered. 2-D sagittal, coronal reconstructions have been obtained Low dose protocols were performed. One or more of the following dose reduction techniques were used; automated exposure control, adjustment of the mA and/or KV according to patient size, use of iterative reconstruction technique. Findings: No significant ventricular enlargement. Intra-axial or extra-axial hemorrhage density is not seen. No mass effect or midline shift Basal cisterns are not remarkable. Fourth ventricle is midline. Cranial vault intact. Impression: Negative for acute hemorrhage, mass effect or midline shift Chronic right mastoiditis Right otitis externa, right otitis media
[2024-08-25 20:56] LABS: Basophils # (Auto) 0.1 Thou/mm3 (0.0-0.2); Basophils % (Auto) 2 % (0-2.5); Eosinophils # (Auto) 0.1 Thou/mm3 (0.0-0.5); Eosinophils % (Auto) 2 % (0-10); Hematocrit 35.7 % (41.0-53.0); Hemoglobin 12.9 g/dL (13.5-16.0); Immature Granulocytes % (Auto) 0 % (0-0); Immature Granulocytes Auto 0.02 Thou/mm3 (0.00-0.00); Lymphocytes # (Auto) 2.5 Thou/mm3 (1.0-4.8); Lymphocytes % (Auto) 55 % (10-50); Mean Corpuscular HGB Conc 36.1 g/dl (31.0-37.0); Mean Corpuscular Hemoglobin 32.6 pg (25.0-35.0); Mean Corpuscular Volume 90 fL (80-100); Monocytes # (Auto) 0.5 Thou/mm3 (0.0-0.8); Monocytes % (Auto) 10 % (0-12); Neutrophils # (Auto) 1.4 Thou/mm3 (1.8-7.7); Neutrophils % (Auto) 31 % (37-80); Nucleated Red Blood Cell % 0 /100 WBC (0); Platelet Count 141 Thou/mm3 (140-440); RDW Standard Deviation 49.1 fL (35.1-43.9); Red Blood Count 3.96 Miln/mm3 (4.50-5.90); White Blood Count 4.5 Thou/mm3 (3.8-10.6)
[2024-08-25 21:26] LABS: Alcohol, Blood Medical 471.6 mg/dL (0-10.0)
--- NOTE | 2024-08-25 23:14 | EDNOTE_ITS ---
ED Fall Injury RME/HPI General Chief Complaint: Fall Stated Complaint: FLANK PAIN Time Seen by Provider: 08/25/24 19:32 Source: patient Arrival date/time: 08/25/24 19:04 39-year-old male presents to ED with complaint of a ground-level fall. Patient tells me he was out x 5 minutes. Mode of arrival: ambulatory Limitations: no limitations RME / HPI complaint: fall Onset (ago): minute(s) (5) Fall from: standing Place fall occurred: street Severity: moderate Severity scale (1-10): 5 Related Data Home Medications ?Medication ?Instructions ?Recorded ?Confirmed diazepam 2 mg tablet (Valium) 2 mg PO BID 06/08/2012/28 metoprolol succinate 50 mg 50 mg PO BID 06/08/2010/15 tablet,extended release 24 hr Previous Rx's ?Medication ?Instructions ?Recorded cephalexin 500 mg capsule 500 mg PO Q6H #20 caps 06/09 tramadol 50 mg tablet 50 mg PO Q6H PRN pain #20 ta bs 06/09/20 ibuprofen 600 mg tablet 600 mg PO QID PRN pain #30 t abs 08/07/23 ibuprofen 800 mg tablet 800 mg PO TID PRN pain #30 t abs 10/17/23 benzocaine 20 %-menthol 0.1 %-zinc 1 ea .Route TID PRN toothache #5.1 10/20/23 chloride 0.15 % mucosal gel grams (Orajel 3X Mouth Sores) ibuprofen 800 mg tablet 800 mg PO TID PRN pain #30 t abs 10/23/23 naproxen 500 mg tablet 500 mg PO BID PRN pain #30 t abs 10/25/23 hydrocodone 5 mg-acetaminophen 325 1 tab PO BID PRN pa in #10 tabs 12/13/23 mg tablet ibuprofen 600 mg tablet 600 mg PO Q8H PRN pain #20 t abs 01/22/24 ibuprofen 600 mg tablet 600 mg PO Q6H #30 tabs 05/13 lorazepam 2 mg tablet (Ativan) 2 mg PO Q8H #9 tabs 10/31 amoxicillin 500 mg tablet 500 mg PO TID #30 tabs 08/26 [id number]-[id number] 3.3 4 drp otic (ear) TID # 10 mL 05/20/25 mg-3 mg-10 mg-0.5 mg/mL ear drops,susp (Cortisporin-TC) Allergies Allergy/AdvReac Type Severity Reaction Status Date / Time No Known Allergies Allergy Verified 05/13/24 12:55 Review of Systems Constitutional Constitutional: Reports system reviewed and no additional complaints, except as documented Eyes Eyes: Reports system reviewed and no additional complaints, except as documented, Denies dry eyes, Denies exophthalmos and Reports floaters Cardiovascular Cardiovascular: Denies chest pain with activity and Denies claudication ED Exam General Limitations: Present no limitations General appearance: Present alert and in no apparent distress Head Head exam: Present atraumatic Eye Eye exam: Present normal appearance, PERRL and EOMI ENT ENT exam: Present normal exam, normal oropharynx and mucous membranes moist Neck Neck exam: Present normal inspection, full ROM and trachea midline Chest Chest inspection: Present normal inspection and symmetric chest wall rise Respiratory Respiratory exam: Present normal lung sounds bilaterally Extremities Exam Extremities exam: Present normal inspection and full ROM (All extremities are full range of motion and symmetrical.) Back Exam Back exam: Present normal inspection and full ROM Neurological Exam Neurological exam: Present alert and oriented X3 Psychiatric Psychiatric exam: Present normal affect and normal mood Skin Skin exam: Present warm, dry, intact and normal color Course Course Course Narrative: Patient will have a CT of his head and blood alcohol level will also be drawn as well as CBC and CMP Quality Measures none Orders Category Date Time Status CT head/brain wo con Stat Exams 08/25/24 20:09 Completed Alcohol, Blood Medical Stat Lab 08/25/24 20:35 Completed CBC Stat Lab 08/25/24 20:35 Completed Done Vital Signs Vital signs: Vital Signs Temperature 98.6 F 08/25/24 19:59 Pulse Rate 103 H 08/25/24 19:59 Respiratory Rate 18 08/25/24 19:59 Blood Pressure 115/85 H 08/25/24 19:59 Pulse Oximetry (%) 97 08/25/24 19:59 Oxygen Delivery Method Room Air 08/25/24 19:59 Pulse ox 97% room air Fall MDM Narrative MDM Narrative:: Patient had a CT that demonstrated sinusitis and right otitis media as well as right otitis externa. There is no midline shift and there is no apparent subdural hematoma. Patient will be made aware of the results. He will also go home with a prescription for amoxicillin and Ciprodex. Patient data External records reviewed:: Other (specify) Clinical information provided by:: none Social determinants that could affect healthcare access:: none Patient has the following chronic illnesses:: Alcoholism How is presenting disease/condition affected by chronic disease/condition?: no chronic disease Evaluation data The following diagnostics were reviewed and interpreted by me:: other (specify) Lab and/or radiology exams considered but not ordered:: N/A Interpretation Summary: N/A Medications / Prescriptions Medications or Prescriptions considered but not ordered:: N/A Medication administrations:: N/A Consultations Consultation(s) initiated? (list below): No Diagnosis Fall Differential Diagnosis: dislocation of shoulder region, compression fracture, concussion with loss of consciousness and concussion without loss of consciousness Most likely diagnosis given after review of the tests above:: N/A Admission Indicated Admission indicated?: not indicated Admission Request Was there a request for admission?: No Disposition Plan Disposition Plan: Discharge Discharge Attestation Discharge Attestation: The patient and all family members were given an opportunity to ask questions and understood the discharge instructions. Discharge instructions specifically effects, indications for sooner follow up or return to the emergency department, and the expected course of current diagnosis. Patient condition: Stable Discharge Plan Plan Patient Disposition: HOME (Self Care) Discharge Disposition comment: Patient is discharged in no apparent distress, he is to primary care physician within a week of today's visit or sooner if worse or not better. Prescriptions/Referrals Prescriptions/Med Rec: New amoxicillin 500 mg tablet 500 mg PO TID Qty: 30 0RF Cortisporin-TC 3.3-3-10-0.5 mg/mL drops,suspension 4 drp otic (ear) TID Qty: 10 0RF No Action metoprolol succinate 50 mg tablet extended release 24 hr 50 mg PO BID Patient Comments: TAKE 1 TABLET BY MOUTH ONCE DAILY diazepam [Valium] 2 mg Tablet 2 mg PO BID tramadol 50 mg tablet 50 mg PO Q6H PRN (Reason: pain) Qty: 20 0RF cephalexin 500 mg capsule 500 mg PO Q6H Qty: 20 0RF Orajel 3X Mouth Sores 20-0.1-0.15 % gel 1 ea .Route TID PRN (Reason: toothache) Qty: 5.1 0RF Rx Instructions: PRN ibuprofen 800 mg tablet 800 mg PO TID PRN (Reason: pain) Qty: 30 0RF naproxen 500 mg tablet 500 mg PO BID PRN (Reason: pain) Qty: 30 0RF ibuprofen 600 mg tablet 600 mg PO QID PRN (Reason: pain) Qty: 30 0RF ibuprofen 800 mg tablet 800 mg PO TID PRN (Reason: pain) Qty: 30 0RF hydrocodone-acetaminophen 5-325 mg tablet 1 tab PO BID MDD 10mg PRN (Reason: pain) Qty: 10 0RF ibuprofen 600 mg tablet 600 mg PO Q8H PRN (Reason: pain) Qty: 20 0RF ibuprofen 600 mg tablet 600 mg PO Q6H Qty: 30 0RF lorazepam [Ativan] 2 mg tablet 2 mg PO Q8H Qty: 9 0RF Referrals: No Primary/Family,Physician [Primary Care Provider] - In 1 week Problem List Clinical Impression: Contusion of head, Otitis media, Otitis externa Impression comment: Patient is to be discharged in no apparent distress. Patient/Caregiver Discharge Instructions Discharge Activity: activity as tolerated Print Language: Ghanaian Stand Alone Forms: Emma Award Info., Patient Portal Info Letter PA/MOTION PICTURE NARRATOR Supervising Physician PA/MOTION PICTURE NARRATOR Supervising Physician: Rufus Goins
--- NOTE | 2024-08-26 01:17 | PC.NURSE ---
per provider pt is ok for discharge. patient escorted out of ED by security.
== END 2024-08-26 01:19 | disposition home or self-care (01) ==
PROVIDERS: Physician Assistant; Emergency Provider Emergency Medicine
DX: S00.93XA Contusion of unspecified part of head, initial encounter (principal); H66.91 Otitis media, unspecified, right ear; H60.91 Unspecified otitis externa, right ear; W18.30XA Fall on same level, unspecified, initial encounter; Y92.410 Unspecified street and highway as the place of occurrence of the external cause
CPT/HCPCS: 36415; 70450; 80320; 85025; 99284; G0480

== ENCOUNTER 2024-09-22 22:37 | Emergency (ER) | payer MEDICAID, SELFPAY ==
[2024-09-22 22:39] VITALS: BP 146/85; PULSE 98; RESP 18; TEMP 36.8; O2SAT 94; BMI 25.8
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
--- NOTE | 2024-09-22 22:43 | EKG_ITS ---
[facility] Test Date: 2024-09-22 Pat Name: ALPESH RAMOS Department: Room: - Gender: Male [employer]: : 1985 Requested By: Jose Woodall Order Number: [id number] Reading MD: Jose Woodall Measurements Intervals [place] Rate: 92 P: 72 NH: 178 QRS: 72 QRSD: 97 T: 59 QT: 352 QTc: 437 Interpretive Statements SINUS RHYTHM Compared to ECG 06/13/2024 17:26:52 No significant changes /store/S0/[id number].pdf
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
[2024-09-22 22:51] VITALS: PULSE 126; RESP 20; O2SAT 97
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
[2024-09-22 23:36] LABS: Basophils # (Auto) 0.1 Thou/mm3 (0.0-0.2); Basophils % (Auto) 3 % (0-2.5); Eosinophils % (Auto) 1 % (0-10); Hematocrit 35.4 % (41.0-53.0); Hemoglobin 12.4 g/dL (13.5-16.0); Immature Granulocytes % (Auto) 1 % (0-0); Immature Granulocytes Auto 0.02 Thou/mm3 (0.00-0.00); Lymphocytes # (Auto) 1.5 Thou/mm3 (1.0-4.8); Lymphocytes % (Auto) 36 % (10-50); Mean Corpuscular Volume 92 fL (80-100); Monocytes # (Auto) 0.6 Thou/mm3 (0.0-0.8); Monocytes % (Auto) 16 % (0-12); Neutrophils # (Auto) 1.8 Thou/mm3 (1.8-7.7); Neutrophils % (Auto) 44 % (37-80); Nucleated Red Blood Cell % 0 /100 WBC (0); Platelet Count 151 Thou/mm3 (140-440); RDW Standard Deviation 47.3 fL (35.1-43.9); Red Blood Count 3.87 Miln/mm3 (4.50-5.90); White Blood Count 4.1 Thou/mm3 (3.8-10.6)
[2024-09-22] MEDS: cefTRIAXone 2 GM in SODIUM CHLORIDE 0.9% (Popper) 100 ML IV (23:41)
--- NOTE | 2024-09-22 23:45 | PC.NURSE ---
mekhi pd at bedside speaking with patient
[2024-09-23 00:05] LABS: Alanine Aminotransferase 57 U/L (10-49); Albumin, Serum 4.5 gm/dL (3.5-5.0); Albumin/Globulin Ratio 1.6 (1.2-2.2); Alkaline Phosphatase 109 U/L (46-116); Anion Gap 14 (7-16); Aspartate Amino Transferase 147 U/L (0-34); BUN/Creatinine Ratio 13 Ratio (12-20); Bilirubin,Total 0.4 mg/dL (0.3-1.2); Blood Urea Nitrogen 8 mg/dL (9-23); Calcium 8.9 mg/dL (8.3-10.6); Calcium (Corrected) 8.9 mg/dL (8.5-10.1); Carbon Dioxide 23.9 mMol/L (20.0-31.0); Chloride 106 mMol/L (98-107); Creatinine (Component) 0.6 mg/dL (0.6-1.3); Estimated Creatinine Clearance 170.7 mL/min (>60); Globulin 2.9 gm/dL (2.3-3.5); Glucose 97 mg/dL (74-106); Lipase 110 U/L (12-53); Osmolality,Calculated 285 (275-295); Potassium 3.8 mMol/L (3.4-5.1); Sodium 144 mMol/L (136-145); Total Protein 7.4 gm/dL (5.7-8.2); Troponin I < 0.020 ng/mL (0.0-0.045); eGFR > 60 See Note
[2024-09-23 00:07] LABS: Alcohol, Blood Medical 449.8 mg/dL (0-10.0)
[2024-09-23 01:02] LABS: Collection Type, Urine Clean Catch
[2024-09-23 01:06] LABS: Bilirubin,Urine Negative (Negative); Blood,Urine 1+ (Negative); Clarity,Urine Clear (Clear/Hazy); Color,Urine Yellow (Lt Yel-Yel); Culture Indicated,Urine Not Indicated; Glucose, Urine Negative (Negative); Ketones,Urine Negative (Negative); Leukocyte Esterase,Urine Negative (Negative); Nitrite,Urine Negative (Negative); Protein,Urine 2+ (Neg - Trace); RBC,Urine 5 /hpf (0-3); Specific Gravity,Urine 1.028 (1.001-1.035); Squamous Epithelial Cell,Urine < 1 /hpf (0-5); Urobilinogen,Urine Negative mg/dL (0.0-1.0); WBC,Urine 1 /hpf (0-5)
[2024-09-23 01:07] VITALS: BP 133/95; PULSE 88; RESP 18; TEMP 36.7; O2SAT 97
[2024-09-23 01:17] LABS: Amphetamine/Methamp Scrn,U Negative (Negative); Barbiturate Screen,Urine Negative (Negative); Benzodiazepines Screen,Urine Positive (Negative); Benzoylecgonine Screen, Ur Negative (Negative); Fentanyl Screen,Urine Negative (Negative); Opiate Screen,Urine Negative (Negative); THC Screen,Urine Positive (Negative)
[2024-09-23 02:57] VITALS: BP 131/92; PULSE 89; RESP 17; TEMP 36.4; O2SAT 98
[2024-09-23] MEDS: LIDOCAINE HCL 1% 20 ML VIAL INFL (03:00)
[2024-09-23] MEDS: AMOXICILLIN/POT CLAV 875 TABLET 1 TAB PO (04:43)
[2024-09-23 05:44] VITALS: BP 137/84; PULSE 77; RESP 16; TEMP 36.8; O2SAT 97
== END 2024-09-23 06:05 | disposition home or self-care (01) ==
PROVIDERS: Physician Assistant Medical; Emergency Provider Emergency Medicine
DX: S01.511A Laceration without foreign body of lip, initial encounter (principal); S09.90XA Unspecified injury of head, initial encounter; F10.129 Alcohol abuse with intoxication, unspecified; Y04.0XXA Assault by unarmed brawl or fight, initial encounter; Y90.8 Blood alcohol level of 240 mg/100 ml or more; H70.11 Chronic mastoiditis, right ear; H60.91 Unspecified otitis externa, right ear; H66.91 Otitis media, unspecified, right ear; M54.2 Cervicalgia
CPT/HCPCS: 12011; 36415; 70450; 70486; 71045; 72125; 80053; 80307; 80320; 81001; 83690; 84484; 85025; 96365; 99284; J0696; J3490; J7050; A9270; G0480

== ENCOUNTER 2024-09-25 16:05 | Emergency (ER) | payer MEDICAID, SELFPAY ==
[2024-09-25 16:49] VITALS: BP 127/72; PULSE 119; RESP 18; TEMP 37.1; O2SAT 95; BMI 21.9
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
[2024-09-25] MEDS: HYDROcodone/APAP 7.5/325 TABLET 1 TAB PO (17:51)
== END 2024-09-25 18:33 | disposition home or self-care (01) ==
PROVIDERS: Emergency Provider Emergency Medicine
DX: S01.511A Laceration without foreign body of lip, initial encounter (principal); F10.129 Alcohol abuse with intoxication, unspecified; Y04.0XXA Assault by unarmed brawl or fight, initial encounter; Y90.9 Presence of alcohol in blood, level not specified; Z76.0 Encounter for issue of repeat prescription
CPT/HCPCS: 99283; A9270

== ENCOUNTER 2024-12-17 16:10 | Emergency (ER) | payer MEDICAID, SELFPAY ==
[2024-12-17 16:20] VITALS: PULSE 120; RESP 20; O2SAT 93; BMI 21.7
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
[2024-12-17 17:27] LABS: Basophils # (Auto) 0.1 Thou/mm3 (0.0-0.2); Basophils % (Auto) 1 % (0-2.5); Eosinophils # (Auto) 0.0 Thou/mm3 (0.0-0.5); Eosinophils % (Auto) 0 % (0-10); Hematocrit 36.2 % (41.0-53.0); Hemoglobin 12.5 g/dL (13.5-16.0); Immature Granulocytes Auto 0.02 Thou/mm3 (0.00-0.00); Lymphocytes # (Auto) 3.8 Thou/mm3 (1.0-4.8); Lymphocytes % (Auto) 49 % (10-50); Mean Corpuscular HGB Conc 34.5 g/dl (31.0-37.0); Mean Corpuscular Hemoglobin 30.8 pg (25.0-35.0); Mean Corpuscular Volume 89 fL (80-100); Monocytes # (Auto) 0.6 Thou/mm3 (0.0-0.8); Monocytes % (Auto) 8 % (0-12); Neutrophils # (Auto) 3.3 Thou/mm3 (1.8-7.7); Neutrophils % (Auto) 42 % (37-80); Nucleated Red Blood Cell # 0.00 Thou/mm3 (0.00-0.00); Nucleated Red Blood Cell % 0 /100 WBC (0); Platelet Count 235 Thou/mm3 (140-440); RDW Standard Deviation 41.6 fL (35.1-43.9); Red Blood Count 4.06 Miln/mm3 (4.50-5.90); White Blood Count 7.7 Thou/mm3 (3.8-10.6)
[2024-12-17 17:39] VITALS: BMI 22.9
[2024-12-17 17:43] VITALS: BP 144/89; PULSE 90; RESP 15; TEMP 36.8; O2SAT 96
[2024-12-17] MEDS: ACETAMINOPHEN 500 MG TABLET 1000 MG PO (17:46)
[2024-12-17 18:00] LABS: Anion Gap 14 (7-16); BUN/Creatinine Ratio 8 Ratio (12-20); Blood Urea Nitrogen < 5 mg/dL (9-23); Carbon Dioxide 24.3 mMol/L (20.0-31.0); Chloride 105 mMol/L (98-107); Creatinine (Component) 0.6 mg/dL (0.6-1.3); Potassium 3.3 mMol/L (3.4-5.1); Sodium 143 mMol/L (136-145)
[2024-12-17 18:01] LABS: Alanine Aminotransferase 10 U/L (10-49); Albumin, Serum 4.2 gm/dL (3.5-5.0); Albumin/Globulin Ratio 1.2 (1.2-2.2); Alkaline Phosphatase 88 U/L (46-116); Aspartate Amino Transferase 31 U/L (0-34); Bilirubin,Total 0.4 mg/dL (0.3-1.2); Calcium 9.0 mg/dL (8.3-10.6); Calcium (Corrected) 9.0 mg/dL (8.5-10.1); Estimated Creatinine Clearance 184.5 mL/min (>60); Globulin 3.6 gm/dL (2.3-3.5); Glucose 89 mg/dL (74-106); Osmolality,Calculated 281 (275-295); Total Protein 7.8 gm/dL (5.7-8.2); eGFR > 60 See Note
[2024-12-17 18:12] LABS: Alcohol, Blood Medical 446.1 mg/dL (0-10.0)
[2024-12-17 18:34] VITALS: BP 128/87; PULSE 83; RESP 19; TEMP 36.8; O2SAT 96
--- NOTE | 2024-12-17 18:54 | PC.NURSE ---
PER [facility] REVIEW COORDINATOR, OK TO REMOVE PT'S CERVICAL COLLAR AT THIS TIME.
--- NOTE | 2024-12-17 18:58 | XR_ITS ---
Examination: CT maxillofacial, without intravenous contrast. 2-D sagittal reconstructions. 3-D reconstructions. Date and time of exam:December 17, 2024, 1920 hrs. Indications: Patient fell today with injury to the face, jaw pain CTDI: vol (mGy):20.8 DLP: (mGycm):551 Technique: Multiple axial images of maxillofacial region, 3.0 mm slice thickness. 2-D sagittal and coronal reconstructions. 3-D reconstructions. Low dose protocols were performed. One or more of the following dose reduction techniques were used; automated exposure control, adjustment of the mA and/or KV according to patient size, use of iterative reconstruction technique. Findings: Portable frontal sinuses intact (Intact No acute nasal bone fracture. No depression zygomatic arches. Maxilla intact Acute fractures angle and ramus of the mandible on the left side, comminuted, extending to a molar socket The fractures are comminuted,, sagittal images 83 through 87 Condyles appear intact There are numerous mandibular dental caries Impression: Acute severely comminuted fractures left mandibular angle and ramus with mild offset
[2024-12-17 19:17] VITALS: BP 129/82; PULSE 88; RESP 16; O2SAT 95
[2024-12-17 19:22] VITALS: BP 129/82; PULSE 94; RESP 18; O2SAT 97
[2024-12-17] MEDS: KETOROLAC INJ 30 MG/ML VIAL IVP (19:23)
--- NOTE | 2024-12-17 20:10 | PC.NURSE ---
PT TOOK OFF IV, PROCEEDED TO LEAVE ER BUT MARGARITA MADSEN TOLD HIM TO GO BACK TO ROOM FOR HIS PAPER WORK.
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
== END 2024-12-17 21:13 | disposition left against medical advice (07) ==
PROVIDERS: Nurse Practitioner Family; Emergency Provider Emergency Medicine
DX: S02.652A Fracture of angle of left mandible, initial encounter for closed fracture (principal); S02.642A Fracture of ramus of left mandible, initial encounter for closed fracture; R51.9 Headache, unspecified; M54.2 Cervicalgia; M54.50 Low back pain, unspecified; Y04.0XXA Assault by unarmed brawl or fight, initial encounter
CPT/HCPCS: 36415; 70450; 70486; 72125; 72131; 80053; 80307; 80320; 85025; 96374; 99284; J1885; A9270; G0480

== ENCOUNTER 2024-12-31 19:03 | Emergency (ER) | payer MEDICAID, SELFPAY ==
[2024-12-31 19:43] VITALS: PULSE 118; RESP 20; O2SAT 97; BMI 24.6
[2024-12-31 20:08] VITALS: BP 113/73; PULSE 102; RESP 16; TEMP 36.6; O2SAT 95
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
[2024-12-31 20:51] LABS: Basophils # (Auto) 0.0 Thou/mm3 (0.0-0.2); Basophils % (Auto) 1 % (0-2.5); Eosinophils # (Auto) 0.0 Thou/mm3 (0.0-0.5); Eosinophils % (Auto) 0 % (0-10); Hematocrit 36.7 % (41.0-53.0); Hemoglobin 12.4 g/dL (13.5-16.0); Immature Granulocytes Auto 0.01 Thou/mm3 (0.00-0.00); Lymphocytes # (Auto) 2.7 Thou/mm3 (1.0-4.8); Lymphocytes % (Auto) 54 % (10-50); Mean Corpuscular HGB Conc 33.8 g/dl (31.0-37.0); Mean Corpuscular Hemoglobin 30.9 pg (25.0-35.0); Mean Corpuscular Volume 92 fL (80-100); Monocytes # (Auto) 0.6 Thou/mm3 (0.0-0.8); Monocytes % (Auto) 11 % (0-12); Neutrophils # (Auto) 1.7 Thou/mm3 (1.8-7.7); Neutrophils % (Auto) 34 % (37-80); Nucleated Red Blood Cell # 0.00 Thou/mm3 (0.00-0.00); Nucleated Red Blood Cell % 0 /100 WBC (0); Platelet Count 97 Thou/mm3 (140-440); RDW Standard Deviation 46.6 fL (35.1-43.9); Red Blood Count 4.01 Miln/mm3 (4.50-5.90); White Blood Count 5.1 Thou/mm3 (3.8-10.6)
[2024-12-31 21:13] LABS: INR 1.1 (0.9-1.3); Partial Thromboplastin Time 29.9 Seconds (22.0-36.0); Prothrombin Time 12.2 Seconds (9.0-12.2)
[2024-12-31 21:20] LABS: Alanine Aminotransferase 30 U/L (10-49); Albumin, Serum 4.6 gm/dL (3.5-5.0); Albumin/Globulin Ratio 1.2 (1.2-2.2); Alkaline Phosphatase 101 U/L (46-116); Anion Gap 12 (7-16); Aspartate Amino Transferase 75 U/L (0-34); BUN/Creatinine Ratio 10 Ratio (12-20); Bilirubin,Total 0.5 mg/dL (0.3-1.2); Blood Urea Nitrogen 6 mg/dL (9-23); Calcium 9.0 mg/dL (8.3-10.6); Calcium (Corrected) 9.0 mg/dL (8.5-10.1); Carbon Dioxide 29.5 mMol/L (20.0-31.0); Chloride 103 mMol/L (98-107); Creatinine (Component) 0.6 mg/dL (0.6-1.3); Estimated Creatinine Clearance 186.8 mL/min (>60); Globulin 3.7 gm/dL (2.3-3.5); Glucose 89 mg/dL (74-106); Osmolality,Calculated 283 (275-295); Potassium 4.0 mMol/L (3.4-5.1); Sodium 144 mMol/L (136-145); Total Protein 8.3 gm/dL (5.7-8.2); eGFR > 60 See Note
[2024-12-31 21:22] LABS: Alcohol, Blood Medical 523.4 mg/dL (0-10.0)
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
--- NOTE | 2025-01-01 00:02 | PC.NURSE ---
Pt did not answer when name was called from the lobby and was not found outside.
== END 2025-01-01 00:10 | disposition left against medical advice (07) ==
PROVIDERS: Physician Assistant; Emergency Provider Emergency Medicine
DX: R07.81 Pleurodynia (principal); Z53.29 Procedure and treatment not carried out because of patient's decision for other reasons
CPT/HCPCS: 36415; 70450; 70486; 71250; 72125; 80053; 80320; 85025; 85610; 85730; 99284; G0480

== ENCOUNTER 2025-01-02 07:19 | Emergency (ER) | payer MEDICAID, SELFPAY ==
[2025-01-02 07:21] VITALS: BP 138/94; PULSE 65; RESP 18; TEMP 36.6; O2SAT 95
[2025-01-02 07:27] VITALS: PULSE 88; RESP 18; O2SAT 99
[2025-01-02 07:35] VITALS: BMI 23.2
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
== END 2025-01-02 12:45 | disposition left against medical advice (07) ==
PROVIDERS: Emergency Provider Emergency Medicine
DX: S02.652A Fracture of angle of left mandible, initial encounter for closed fracture (principal); S02.642A Fracture of ramus of left mandible, initial encounter for closed fracture; S02.602A Fracture of unspecified part of body of left mandible, initial encounter for closed fracture; Y04.8XXA Assault by other bodily force, initial encounter; Y09 Assault by unspecified means; Z53.29 Procedure and treatment not carried out because of patient's decision for other reasons
CPT/HCPCS: 70450; 70486; 72125; 99284

== ENCOUNTER 2025-01-07 11:50 | Emergency (ER) | payer MEDICAID, SELFPAY ==
[2025-01-07 12:08] VITALS: BMI 23.0
[2025-01-07 12:11] VITALS: BP 124/81; PULSE 80; RESP 18; TEMP 36.4; O2SAT 97
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
== END 2025-01-07 14:15 ==
PROVIDERS: Emergency Provider Emergency Medicine
DX: Z02.89 Encounter for other administrative examinations (principal); S02.609A Fracture of mandible, unspecified, initial encounter for closed fracture; F10.10 Alcohol abuse, uncomplicated; Z65.3 Problems related to other legal circumstances; Z59.00 Homelessness unspecified; Y09 Assault by unspecified means
CPT/HCPCS: 99281